=== PATIENT | female | born 1935 | race Caucasian/White ===

== ENCOUNTER 2024-03-21 20:00 | Inpatient (IN) ==
[2024-03-21 21:02] LABS: Basophils # (auto) 0.07 K/uL (0.00-0.20); Basophils % (auto) 0.6 %; Eosinophils # (auto) 0.12 K/uL (0.00-0.50); Eosinophils % (auto) 1.1 %; Hematocrit (blood only) 38.7 % (37.0-47.0); Hemoglobin 12.5 g/dl (12.0-16.0); Immature Granulocytes # (auto) 0.05 K/uL (0.01-0.20); Immature Granulocytes % (auto) 0.5 %; Lymphocytes # (auto) 0.55 K/uL (1.20-3.40); Lymphocytes % (auto) 5.1 %; Mean Corpuscular Hemoglobin 30.6 pg (25.0-34.0); Mean Corpuscular Hgb Conc 32.3 g/dL (32.0-36.0); Mean Corpuscular Volume 94.9 fL (80.0-100.0); Mean Platelet Volume 8.9 fL (9.4-12.4); Monocytes # (auto) 0.64 K/uL (0.11-0.59); Monocytes % (auto) 5.9 %; Neutrophils # (auto) 9.38 K/uL (1.40-6.50); Neutrophils % (auto) 86.8 %; Platelet Count 350 K/uL (130-400); RDW Coefficient of Variation 13.6 % (11.5-14.5); RDW Standard Deviation 47.2 fL (36.4-46.3); Red Blood Count 4.08 M/uL (4.20-5.40); White Blood Count 10.81 K/ul (4.8-10.8)
[2024-03-21 21:22] LABS: Albumin Globulin Ratio 1.2 (0.9-2); Albumin Level 4.2 gm/dl (3.4-5.0); BUN Creatinine Ratio 24.3 (10-20); Bilirubin,Total 0.3 mg/dl (0.2-1.0); Calcium 9.8 mg/dl (8.6-10.3); Creatinine Clr Calc Pharmacy 30.2 ml/min; Globulin 3.6 gm/dl (2.5-4.0); Magnesium 2.1 mg/dl (1.7-2.4); Potassium 4.2 mmol/L (3.5-5.1); Total Protein 7.8 gm/dl (6.0-8.3)
[2024-03-21 21:29] LABS: INR 0.9 (0.9-1.1); Partial Thromboplastin Ratio 1.2; Partial Thromboplastin Time 31 Seconds (21-31); Prothrombin Time 10.3 Seconds (9.0-12.0); Troponin I High Sensitivity 9.3 pg/ml (0-14)
[2024-03-21] MEDS: OPTIRAY 320 125ml IV ONE (21:49)
[2024-03-21 22:32] LABS: Adenovirus PCR Not Detected (NotDetected); Bordetella parapertussis PCR Not Detected (NotDetected); Bordetella pertussis PCR Not Detected (NotDetected); Chlamydia pneumoniae PCR Not Detected (NotDetected); Coronavirus 229E PCR Not Detected (NotDetected); Coronavirus CoV-2 (COVID19)PCR DETECTED (NotDetected); Coronavirus HKU1 PCR Not Detected (NotDetected); Coronavirus NL63 PCR Not Detected (NotDetected); Coronavirus OC43PCR Not Detected (NotDetected); Human Metapneumovirus PCR Not Detected (NotDetected); Influenza A PCR Not Detected (NotDetected); Influenza B PCR Not Detected (NotDetected); Mycoplasma pneumoniae PCR Not Detected (NotDetected); Parainfluenza Virus 1 PCR Not Detected (NotDetected); Parainfluenza Virus 2 PCR Not Detected (NotDetected); Parainfluenza Virus 3 PCR Not Detected (NotDetected); Parainfluenza Virus 4 PCR Not Detected (NotDetected); Respiratory Syncytial VirusPCR Not Detected (NotDetected); Rhinovirus/Enterovirus PCR Not Detected (NotDetected)
--- NOTE | 2024-03-21 22:41 | Emergency Department Note ---
Impression & Plan Altered mental status, COVID-19 ED Provider Note NAME: JAYDE GOVEA AGE: 88 SEX: Female INFORMANT: Patient, EMS, and family ED PROVIDER(S): Daniel Kelly MD CHIEF COMPLAINT: Change in mental status PLAN: Disposition: Admitted Outpatient prescription management: none Referral: None MEDICAL DECISION MAKING: Patient presented because of change mental status. There was some concerns of possible strokelike symptoms complaining of left-sided weakness. On exam she may have had a subtle right-sided facial droop. Son was present and noted that she was acting herself. A workup was done. Patient had a borderline leukocytosis. Chest x-ray revealed no clear evidence of pneumonia. Urinalysis was ordered however the patient contaminated the specimen. Her CT imaging did not reveal any acute findings. BioFire testing did reveal the presence of COVID-19. I suspect this COVID illness is likely causing some of the issues. I did explain this to the patient's family. Currently she is saturating well enough on room air. Patient became agitated about being in the hospital and I suspect a component of sundowning in conjunction with her current illness. She was quite belligerent with staff and did require some mild sedation to keep her from climbing out of bed or getting more physical with the staff members. She did refuse a catheter urinalysis specimen on multiple occasions per nursing. Further management in the hospital will be necessary as the patient is not safe to go home at this point in time. Consultation was made with Dr. Morales of the [facility] service. Patient was evaluated in the ER for further management. Care/management discussed with: manager supply Level of care consideration(s): After review of the information above and other included data, I feel the patient requires escalation of care to admission Triage Nursing notes: reviewed and agree them. Vital Signs: reviewed and remarkable for no significant abnormalities Additional History obtained from: EMS and patient's son. Chronic Medical/Social Conditions affecting care: Hypothyroidism Prior/ Outside/ External records reviewed: none Differential Diagnosis: Infection, hypoglycemia, electrolyte abnormalities, overdose, toxicologic, cardiac sources, intracerebral event, neurologic, trauma, as well as other pathologies. Diagnostics, independently interpreted by me: ECG: Twelve-lead ECG reveals a sinus rhythm with first-degree AV block at [address] elevation or depression. Cardiac Monitoring: Cardiac monitoring ordered by me: The patient was placed on continuous cardiac monitoring and observed. It revealed a normal sinus rhythm at 86 beats per minute without ectopy or evidence of dysrhythmia. Medical decision rules: none Imaging studies: Chest x-ray is negative for acute infiltrate. No acute intracranial findings on CT imaging and CT angiography of the head. CT angiography of the neck reveals stenosis of the carotid bifurcations. HPI: 88 year old Female arrives for evaluation of change in mental status. Family is present and states that the patient was normal self albeit exhibiting her normal level of dementia 48 hours ago. EMS reported that the patient had a change in mental status over the last few days, likely spanning from yesterday and then was more so this evening. There was some possible left-sided facial droop and slurred speech but that had resolved. Patient is oriented to self. She feels uncomfortable about being in the emergency department but denies any other complaints. Family thought that she did have some congestion. She was treated for pneumonia a month ago and recovered from that. Family also notes the patient usually gets around with a walker. Pt denies LOC, headache, visual changes, neck pain, chest pain, breathing difficulties, nausea, vomiting, abdominal pain, back pain, extremity pain, numbness, weakness, open wounds, active bleeding, or other complaints. PAST MEDICAL HISTORY: See Below, dementia, pneumonia PAST SURGICAL HISTORY: See Below, SOCIAL HISTORY: See Below, retired HOME MEDICATIONS: See Below ALLERGIES: See Below VITALS: See Below PHYSICAL EXAMINATION: GENERAL: Awake, alert, [id number], in no distress HENT: Normocephalic, atraumatic. Oropharynx unremarkable. EYES: Normal conjunctiva. Sclera non-icteric. NECK: Inspection normal. Non-tender. Supple. No nuchal rigidity. FROM. No masses. RESPIRATORY: Clear to auscultation. No wheezes. No rales. Normal respiratory effort. CARDIAC: Normal rate. Normal rhythm. No murmurs. No rubs. Extremities warm and well perfused. Pulses equal. No JVD. GI: Soft, non-distended. No tenderness to palpation. No rebound or guarding. No masses. RECTAL: Deferred. MUSCULOSKELETAL: Atraumatic. Chest examination reveals no tenderness. The back is symmetrical on inspection without obvious abnormality. There is no CVA tenderness to palpation. No joint edema. LOWER EXTREMITIES: Calves are equal size bilaterally and non-tender. No edema. No discoloration. NEURO: Mildly demented sensorium. No focal sensory or motor deficits noted. however the patient may have a slight right facial droop with some weakness in the nasolabial fold. No drift. Speech normal SKIN: No rash or jaundice noted. 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 Beliefs That Will Affect Care: None Current Living Situation: Longterm Other Information That Helps Us Care for You: No Feels Safe at Home: Yes Safety Concerns: Feels Safe At This Time Assistive Devices: Walker Home Meds Home Medications Medication Instructions Recorded Confirmed acetaminophen 325 mg tablet 650 mg PO Q8H 03/22/24 03/22/24 calcium 600 mg (as 1 tab PO DAILY 03/22/24 03/22/24 carbonate)-vitamin D3 10 mcg (400 unit) tablet cetirizine 10 mg tablet 10 mg PO DAILY 03/22/24 03/22/24 cholecalciferol (vitamin D3) 25 1,000 unit PO DAILY 03/22/24 03/22/24 mcg (1,000 unit) capsule furosemide 40 mg tablet 80 mg PO DAILY 03/22/24 03/22/24 levothyroxine 125 mcg tablet 125 mcg PO DAILY 03/22/24 03/22/24 levothyroxine 125 mcg tablet 187.5 mcg PO DIRECTED 03/22/24 03/22/24 sertraline 100 mg tablet 100 mg PO DAILY 03/22/24 03/22/24 Results & Data (ED) Vital Signs Vital Signs - 24 hr 03/21/24 20:18 03/21/24 20:58 03/21/24 21:05 Temperature 37.2 C Temperature Source Oral Pulse Rate 85 82 Pulse Rate [Finger] 95 H Pulse Rate from SpO2 Sensor Pulse Rhythm Regular Pulse Rhythm [Finger] Pulse Strength Normal Pulse Strength [Finger] Respiratory Rate 20 20 Respiratory Effort / Characteristics Non-Labored Spontaneous Respiratory Depth Normal Respiratory Pattern Blood Pressure 171/97 H Blood Pressure [Right Arm] 154/90 H Blood Pressure Mean 121 Blood Pressure Mean [Right Arm] 111 Blood Pressure Position [Right Arm] Pulse Oximetry 94 97 Oxygen Delivery Method Room Air Room Air Sepsis Recent Fever Within 48 Hours No Sepsis New/Unexplained Change in Mental Status N/A Sepsis Action Taken by Nursing No Action Required 03/21/24 23:06 03/22/24 00:00 03/22/24 00:57 Temperature Temperature Source Pulse Rate 81 80 Pulse Rate [Finger] Pulse Rate from SpO2 Sensor 90 Pulse Rhythm Pulse Rhythm [Finger] Pulse Strength Pulse Strength [Finger] Respiratory Rate 20 18 Respiratory Effort / Characteristics Respiratory Depth Respiratory Pattern Blood Pressure 117/64 Blood Pressure [Right Arm] Blood Pressure Mean 89 Blood Pressure Mean [Right Arm] Blood Pressure Position [Right Arm] Pulse Oximetry 96 95 Oxygen Delivery Method Room Air Sepsis Recent Fever Within 48 Hours Sepsis New/Unexplained Change in Mental Status Sepsis Action Taken by Nursing 03/22/24 01:03 03/22/24 01:05 Temperature Temperature Source Pulse Rate Pulse Rate [Finger] 86 Pulse Rate from SpO2 Sensor 88 Pulse Rhythm Pulse Rhythm [Finger] Regular Pulse Strength Pulse Strength [Finger] Normal Respiratory Rate 18 Respiratory Effort / Characteristics Non-Labored Respiratory Depth Normal Respiratory Pattern Regular Blood Pressure Blood Pressure [Right Arm] 118/74 Blood Pressure Mean Blood Pressure Mean [Right Arm] 88 Blood Pressure Position [Right Arm] Lying Pulse Oximetry 94 93 Oxygen Delivery Method Room Air Sepsis Recent Fever Within 48 Hours Sepsis New/Unexplained Change in Mental Status Sepsis Action Taken by Nursing Laboratory Data 03/21/24 20:45 03/21/24 20:45 Lab Results 03/21/24 03/21/24 Range/Units 20:45 21:35 WBC 10.81 H (4.8-10.8) K/ul RBC 4.08 L (4.20-5.40) M/uL Hgb 12.5 (12.0-16.0) g/dl Hct 38.7 (37.0-47.0) % MCV 94.9 (80.0-100.0) fL MCH 30.6 (25.0-34.0) pg MCHC 32.3 (32.0-36.0) g/dL RDW Std Deviation 47.2 H (36.4-46.3) fL RDW Coeff of [place] 13.6 (11.5-14.5) % Plt Count 350 (130-400) K/uL MPV 8.9 L (9.4-12.4) fL Immature Gran % (Auto) 0.5 % Neut % (Auto) 86.8 % Lymph % (Auto) 5.1 % Addison % (Auto) 5.9 % Eos % (Auto) 1.1 % Baso % (Auto) 0.6 % Neut # (Auto) 9.38 H (1.40-6.50) K/uL Lymph # (Auto) 0.55 L (1.20-3.40) K/uL Addison # (Auto) 0.64 H (0.11-0.59) K/uL Eos # (Auto) 0.12 (0.00-0.50) K/uL Baso # (Auto) 0.07 (0.00-0.20) K/uL Immature Gran # (Auto) 0.05 (0.01-0.20) K/uL PT 10.3 (9.0-12.0) Seconds INR 0.9 (0.9-1.1) APTT 31 (21-31) Seconds PTT Ratio 1.2 Sodium 137 (136-145) mmol/L Potassium 4.2 (3.5-5.1) mmol/L Chloride 98 (98-107) mmol/L Carbon Dioxide 30 (21-32) mmol/L Anion Gap 9 (3-11) BUN 27 H (6-23) mg/dl Creatinine 1.11 (0.6-1.2) mg/dl Est Cr Clr Drug Dosing 30.2 ml/min eGFR 47.51 BUN/Creatinine Ratio 24.3 H (10-20) Glucose 134 H (70-99(Fasting)) mg/dl Calcium 9.8 (8.6-10.3) mg/dl Magnesium 2.1 (1.7-2.4) mg/dl Total Bilirubin 0.3 (0.2-1.0) mg/dl AST 16 (13-39) U/L ALT 7 (7-52) U/L Alkaline Phosphatase 112 H (34-104) U/L Troponin I High Sens 9.3 (0-14) pg/ml C-Reactive Protein 3.10 H (0-0.5) mg/dl Total Protein 7.8 (6.0-8.3) gm/dl Albumin 4.2 (3.4-5.0) gm/dl Globulin 3.6 (2.5-4.0) gm/dl Albumin/Globulin Ratio 1.2 (0.9-2) Adenovirus (PCR) Not Detected (NotDetected) B. pertussis DNA (PCR) Not Detected (NotDetected) B.parapertussis DNA PCR Not Detected (NotDetected) C. pneumoniae DNA (PCR) Not Detected (NotDetected) Coronavirus OC43 (PCR) Not Detected (NotDetected) Coronavirus HKU1 (PCR) Not Detected (NotDetected) Coronavirus 229E (PCR) Not Detected (NotDetected) SARS-CoV-2 (PCR) DETECTED A (NotDetected) Coronavirus NL63 (PCR) Not Detected (NotDetected) Human Metapneumovir PCR Not Detected (NotDetected) Influenza Type A (PCR) Not Detected (NotDetected) Influenza Type B (PCR) Not Detected (NotDetected) M. pneumoniae (PCR) Not Detected (NotDetected) Parainfluenza 1 (PCR) Not Detected (NotDetected) Parainfluenza 2 (PCR) Not Detected (NotDetected) Parainfluenza 3 (PCR) Not Detected (NotDetected) Parainfluenza 4 (PCR) Not Detected (NotDetected) RSV (PCR) Not Detected (NotDetected) Entero/Rhino (PCR) Not Detected (NotDetected) Administered Medications Discontinued Medications Haloperidol Lactate (Haloperidol Lactate 5 Mg/Ml 1 Ml Vial) 2 mg IV NOW STA Stop: 03/22/24 00:32 Last Admin: 03/22/24 00:34 Dose: 2 mg Documented By: ELO Ioversol (Optiray 320 125ml) 119 ml IV ONCE ONE Stop: 03/21/24 21:49 Last Admin: 03/21/24 21:49 Dose: 119 ml Documented By: DENEEN Imaging Data Radiologist's Impression: Chest X-Ray 03/21/24 20:48 Exam(s): XR CXR 1 VIEW EXAM: XR Chest, 1 View CLINICAL HISTORY: Reason for exam: neuro deficit, acute stroke suspected. TECHNIQUE: Frontal view of the chest. COMPARISON: No relevant prior studies available. FINDINGS: Lungs: There is mild linear subsegmental atelectasis noted in the right lung base. Lungs are otherwise clear. No segmental or lobar consolidation. No pleural fluid or pneumothorax. Pleural space: See above. Heart: Unremarkable. No cardiomegaly. Mediastinum: Unremarkable. Normal mediastinal contour. Bones/joints: There is advanced bilateral shoulder degenerative joint disease with remodeling of the bilateral humeral heads. No acute fracture noted. Vasculature: There mild aortic arch calcifications. IMPRESSION: There is mild linear subsegmental atelectasis noted in the right lung base. Lungs are otherwise clear. Electronically signed by: Koko Nava MD 03/21/24 22:42 PM Head CTA 03/21/24 21:42 Exam(s): CTA HEAD W/WO Contrast IV Amt: 119 ml optiray 320 EXAM: CT Angiography Head Without and With Intravenous Contrast CLINICAL HISTORY: Reason for exam: right facial droop. TECHNIQUE: Axial computed tomographic angiography images of the head without and with intravenous contrast. CTDI is 68.27 mGy and DLP is 953.83 mGy-cm. Automated exposure control was utilized for the study. A dose lowering technique was utilized adhering to the principles of ALARA. MIP reconstructed images were created and reviewed. CONTRAST: Patient received 119 ml optiray 320 of IV contrast COMPARISON: No relevant prior studies available. FINDINGS: VASCULATURE: Right internal carotid artery: No acute findings. Intracranial segment is patent with no significant stenosis. No aneurysm. Right anterior cerebral artery: Unremarkable. No occlusion or significant stenosis. No aneurysm. Right middle cerebral artery: Unremarkable. No occlusion or significant stenosis. No aneurysm. Right posterior cerebral artery: Unremarkable. No occlusion or significant stenosis. No aneurysm. Right vertebral artery: Unremarkable as visualized. Left internal carotid artery: No acute findings. Intracranial segment is patent with no significant stenosis. No aneurysm. Left anterior cerebral artery: Unremarkable. No occlusion or significant stenosis. No aneurysm. Left middle cerebral artery: Unremarkable. No occlusion or significant stenosis. No aneurysm. Left posterior cerebral artery: Unremarkable. No occlusion or significant stenosis. No aneurysm. Left vertebral artery: Left vertebral artery is dominant. Basilar artery: Unremarkable. No occlusion or significant stenosis. No aneurysm. Other vasculature: Unremarkable as visualized. No hemodynamically significant arterial stenosis, arterial occlusion, cerebral aneurysm or dissection. HEAD: Brain: There is moderate chronic cerebral small vessel disease. No hemorrhage. Ventricles: Unremarkable. No ventriculomegaly. Bones/joints: No acute fracture. Soft tissues: Unremarkable. Sinuses: There is moderate bilateral ethmoid sinus opacification. There is minimal mucosal thickening noted in the partially visualized left maxillary sinus. The visualized mastoid air cells are clear. Mastoid air cells: See above. Other findings: There is mild to moderate generalized atrophy. IMPRESSION: 1. No hemodynamically significant arterial stenosis, arterial occlusion, cerebral aneurysm or dissection. 2. There is moderate chronic cerebral small vessel disease. 3. There is mild to moderate generalized atrophy. Electronically signed by: Koko Nava MD 03/21/24 22:52 PM Neck CTA 03/21/24 21:42 Exam(s): CTA NECK With Contrast IV Amt: 119 ml optiray 320 EXAM: CT Angiography Neck With Intravenous Contrast CLINICAL HISTORY: Reason for exam: right facial droop. TECHNIQUE: Routine carotid CT angiography protocol was performed with intravenous contrast. NASCET criteria using the distal ICAs for comparison were used for evaluation of stenoses. CTDI is 68.27 mGy and DLP is 953.83 mGy-cm. Automated exposure control was utilized for the study. A dose lowering technique was utilized adhering to the principles of ALARA. MIP reconstructed images were created and reviewed. CONTRAST: Patient received 119 ml optiray 320 of IV contrast COMPARISON: None. FINDINGS: Artifacts: There is moderate motion artifact which significantly degrades image quality. VASCULATURE: Right common carotid artery: Unremarkable. No occlusion or significant stenosis. No dissection. Right internal carotid artery: There is plaque noted at the bilateral carotid bifurcations and proximal internal carotid arteries. Accurate luminal diameter characterization is limited secondary to moderate motion artifact particularly at the level of the carotid bifurcations. Repeat imaging and follow-up carotid Doppler evaluation should be considered. Extracranial segment is patent with no occlusion or significant stenosis. No dissection. Right external carotid artery: Unremarkable. No occlusion. Right vertebral artery: Unremarkable. No occlusion or significant stenosis. No dissection. Left common carotid artery: Unremarkable. No occlusion or significant stenosis. No dissection. Left internal carotid artery: See above. Left external carotid artery: Unremarkable. No occlusion. Left vertebral artery: Unremarkable. No occlusion or significant stenosis. No dissection. Aorta: There are moderate aortic arch atherosclerotic calcifications. The common carotid and subclavian arteries are patent. Evaluation of the proximal left common carotid artery is limited secondary to motion artifact. There is moderate to severe tortuosity of the common carotid and internal carotid arteries. NECK: Bones/joints: There is advanced multilevel cervical degenerative disc disease throughout the cervical spine. No fracture or osseous destruction identified. Soft tissues: Unremarkable. Lung apices: Clear. CAROTID STENOSIS REFERENCE USING NASCET CRITERIA: % ICA stenosis = (1 - narrowest ICA diameter/diameter of distal cervical ICA) x 100. Mild - <50% stenosis. Moderate - 50-69% stenosis. Severe - 70-94% stenosis. Near occlusion - 95-99% stenosis. Occluded - 100% stenosis. IMPRESSION: There is plaque noted at the bilateral carotid bifurcations and proximal internal carotid arteries. Accurate luminal diameter characterization is limited secondary to moderate motion artifact particularly at the level of the carotid bifurcations. Repeat imaging and follow-up carotid Doppler evaluation should be considered. Electronically signed by: Koko Nava MD 03/21/24 23:02 PM Discharge Plan Visit Data Chief Complaint: Confusion Stated Complaint: CONFUSION, SLURRED SPEECH EARLIER- BETTER NOW ED Provider: Daniel Kelly Discharge Problem: Altered mental status, COVID-19 Patient Disposition: Admitted As Inpatient Discharge Instructions Interventions: ED Discharge Assessment Last Done: 03/22/24 02:11
--- NOTE | 2024-03-21 22:44 | XRay Report ---
Exam(s): XR CXR 1 VIEW EXAM: XR Chest, 1 View CLINICAL HISTORY: Reason for exam: neuro deficit, acute stroke suspected. TECHNIQUE: Frontal view of the chest. COMPARISON: No relevant prior studies available. FINDINGS: Lungs: There is mild linear subsegmental atelectasis noted in the right lung base. Lungs are otherwise clear. No segmental or lobar consolidation. No pleural fluid or pneumothorax. Pleural space: See above. Heart: Unremarkable. No cardiomegaly. Mediastinum: Unremarkable. Normal mediastinal contour. Bones/joints: There is advanced bilateral shoulder degenerative joint disease with remodeling of the bilateral humeral heads. No acute fracture noted. Vasculature: There mild aortic arch calcifications. IMPRESSION: There is mild linear subsegmental atelectasis noted in the right lung base. Lungs are otherwise clear. Electronically signed by: Koko Nava MD 03/21/24 22:42 PM
--- NOTE | 2024-03-21 22:53 | CT Scan Report ---
Exam(s): CTA HEAD W/WO Contrast IV Amt: 119 ml optiray 320 EXAM: CT Angiography Head Without and With Intravenous Contrast CLINICAL HISTORY: Reason for exam: right facial droop. TECHNIQUE: Axial computed tomographic angiography images of the head without and with intravenous contrast. CTDI is 68.27 mGy and DLP is 953.83 mGy-cm. Automated exposure control was utilized for the study. A dose lowering technique was utilized adhering to the principles of ALARA. MIP reconstructed images were created and reviewed. CONTRAST: Patient received 119 ml optiray 320 of IV contrast COMPARISON: No relevant prior studies available. FINDINGS: VASCULATURE: Right internal carotid artery: No acute findings. Intracranial segment is patent with no significant stenosis. No aneurysm. Right anterior cerebral artery: Unremarkable. No occlusion or significant stenosis. No aneurysm. Right middle cerebral artery: Unremarkable. No occlusion or significant stenosis. No aneurysm. Right posterior cerebral artery: Unremarkable. No occlusion or significant stenosis. No aneurysm. Right vertebral artery: Unremarkable as visualized. Left internal carotid artery: No acute findings. Intracranial segment is patent with no significant stenosis. No aneurysm. Left anterior cerebral artery: Unremarkable. No occlusion or significant stenosis. No aneurysm. Left middle cerebral artery: Unremarkable. No occlusion or significant stenosis. No aneurysm. Left posterior cerebral artery: Unremarkable. No occlusion or significant stenosis. No aneurysm. Left vertebral artery: Left vertebral artery is dominant. Basilar artery: Unremarkable. No occlusion or significant stenosis. No aneurysm. Other vasculature: Unremarkable as visualized. No hemodynamically significant arterial stenosis, arterial occlusion, cerebral aneurysm or dissection. HEAD: Brain: There is moderate chronic cerebral small vessel disease. No hemorrhage. Ventricles: Unremarkable. No ventriculomegaly. Bones/joints: No acute fracture. Soft tissues: Unremarkable. Sinuses: There is moderate bilateral ethmoid sinus opacification. There is minimal mucosal thickening noted in the partially visualized left maxillary sinus. The visualized mastoid air cells are clear. Mastoid air cells: See above. Other findings: There is mild to moderate generalized atrophy. IMPRESSION: 1. No hemodynamically significant arterial stenosis, arterial occlusion, cerebral aneurysm or dissection. 2. There is moderate chronic cerebral small vessel disease. 3. There is mild to moderate generalized atrophy. Electronically signed by: Koko Nava MD 03/21/24 22:52 PM
--- NOTE | 2024-03-21 23:02 | CT Scan Report ---
Exam(s): CTA NECK With Contrast IV Amt: 119 ml optiray 320 EXAM: CT Angiography Neck With Intravenous Contrast CLINICAL HISTORY: Reason for exam: right facial droop. TECHNIQUE: Routine carotid CT angiography protocol was performed with intravenous contrast. NASCET criteria using the distal ICAs for comparison were used for evaluation of stenoses. CTDI is 68.27 mGy and DLP is 953.83 mGy-cm. Automated exposure control was utilized for the study. A dose lowering technique was utilized adhering to the principles of ALARA. MIP reconstructed images were created and reviewed. CONTRAST: Patient received 119 ml optiray 320 of IV contrast COMPARISON: None. FINDINGS: Artifacts: There is moderate motion artifact which significantly degrades image quality. VASCULATURE: Right common carotid artery: Unremarkable. No occlusion or significant stenosis. No dissection. Right internal carotid artery: There is plaque noted at the bilateral carotid bifurcations and proximal internal carotid arteries. Accurate luminal diameter characterization is limited secondary to moderate motion artifact particularly at the level of the carotid bifurcations. Repeat imaging and follow-up carotid Doppler evaluation should be considered. Extracranial segment is patent with no occlusion or significant stenosis. No dissection. Right external carotid artery: Unremarkable. No occlusion. Right vertebral artery: Unremarkable. No occlusion or significant stenosis. No dissection. Left common carotid artery: Unremarkable. No occlusion or significant stenosis. No dissection. Left internal carotid artery: See above. Left external carotid artery: Unremarkable. No occlusion. Left vertebral artery: Unremarkable. No occlusion or significant stenosis. No dissection. Aorta: There are moderate aortic arch atherosclerotic calcifications. The common carotid and subclavian arteries are patent. Evaluation of the proximal left common carotid artery is limited secondary to motion artifact. There is moderate to severe tortuosity of the common carotid and internal carotid arteries. NECK: Bones/joints: There is advanced multilevel cervical degenerative disc disease throughout the cervical spine. No fracture or osseous destruction identified. Soft tissues: Unremarkable. Lung apices: Clear. CAROTID STENOSIS REFERENCE USING NASCET CRITERIA: % ICA stenosis = (1 - narrowest ICA diameter/diameter of distal cervical ICA) x 100. Mild - <50% stenosis. Moderate - 50-69% stenosis. Severe - 70-94% stenosis. Near occlusion - 95-99% stenosis. Occluded - 100% stenosis. IMPRESSION: There is plaque noted at the bilateral carotid bifurcations and proximal internal carotid arteries. Accurate luminal diameter characterization is limited secondary to moderate motion artifact particularly at the level of the carotid bifurcations. Repeat imaging and follow-up carotid Doppler evaluation should be considered. Electronically signed by: Koko Nava MD 03/21/24 23:02 PM
[2024-03-22] MEDS: HALOPERIDOL LACTATE 5 MG/ML 1 ML VIAL IV STA (00:34)
--- NOTE | 2024-03-22 01:03 | History & Physical Report ---
Date of Service March 22, 2024 History of Present Illness Chief Complaint: Altered mental status Primary Care Provider: Isrrael Mercado MD Past Med/Surg History Problem List Altered mental status (Acute) Social History Smoking Status: Former smoker Preferred Language: Liberian Feels Safe at Home: Yes Review of Systems Review of Systems: All systems reviewed & are unremarkable except as noted in Subjective Results & Data Results & Data Vital Signs (Past 12 Hours) Vital Signs Temp Pulse Pulse Resp BP BP Pulse Ox 03/22/24 00:00 80 18 117/64 96 03/21/24 23:06 81 20 03/21/24 21:05 95 H 20 154/90 H 97 03/21/24 20:58 37.2 C 82 20 171/97 H 94 03/21/24 20:18 85 O2 Del Method 03/22/24 00:00 Room Air 03/21/24 23:06 03/21/24 21:05 Room Air 03/21/24 20:58 Room Air 03/21/24 20:18 Laboratory Results 03/21/24 03/21/24 21:35 20:45 WBC 10.81 H RBC 4.08 L Hgb 12.5 Hct 38.7 MCV 94.9 MCH 30.6 MCHC 32.3 RDW Std Deviation 47.2 H RDW Coeff of [place] 13.6 Plt Count 350 MPV 8.9 L Immature Gran % (Auto) 0.5 Neut % (Auto) 86.8 Lymph % (Auto) 5.1 [place] % (Auto) 5.9 Eos % (Auto) 1.1 Baso % (Auto) 0.6 Neut # (Auto) 9.38 H Lymph # (Auto) 0.55 L [place] # (Auto) 0.64 H Eos # (Auto) 0.12 Baso # (Auto) 0.07 Immature Gran # (Auto) 0.05 PT 10.3 INR 0.9 APTT 31 PTT Ratio 1.2 Sodium 137 Potassium 4.2 Chloride 98 Carbon Dioxide 30 Anion Gap 9 BUN 27 H Creatinine 1.11 Est Cr Clr Drug Dosing 30.2 eGFR 47.51 BUN/Creatinine Ratio 24.3 H Glucose 134 H Calcium 9.8 Magnesium 2.1 Total Bilirubin 0.3 AST 16 ALT 7 Alkaline Phosphatase 112 H Troponin I High Sens 9.3 Total Protein 7.8 Albumin 4.2 Globulin 3.6 Albumin/Globulin Ratio 1.2 Adenovirus (PCR) Not Detected B. pertussis DNA (PCR) Not Detected B.parapertussis DNA PCR Not Detected C. pneumoniae DNA (PCR) Not Detected Coronavirus OC43 (PCR) Not Detected Coronavirus HKU1 (PCR) Not Detected Coronavirus 229E (PCR) Not Detected SARS-CoV-2 (PCR) DETECTED A Coronavirus NL63 (PCR) Not Detected Human Metapneumovir PCR Not Detected Influenza Type A (PCR) Not Detected Influenza Type B (PCR) Not Detected M. pneumoniae (PCR) Not Detected Parainfluenza 1 (PCR) Not Detected Parainfluenza 2 (PCR) Not Detected Parainfluenza 3 (PCR) Not Detected Parainfluenza 4 (PCR) Not Detected RSV (PCR) Not Detected Entero/Rhino (PCR) Not Detected Diagnostic Findings Chest X-Ray 03/21/24 20:48 Exam(s): XR CXR 1 VIEW EXAM: XR Chest, 1 View CLINICAL HISTORY: Reason for exam: neuro deficit, acute stroke suspected. TECHNIQUE: Frontal view of the chest. COMPARISON: No relevant prior studies available. FINDINGS: Lungs: There is mild linear subsegmental atelectasis noted in the right lung base. Lungs are otherwise clear. No segmental or lobar consolidation. No pleural fluid or pneumothorax. Pleural space: See above. Heart: Unremarkable. No cardiomegaly. Mediastinum: Unremarkable. Normal mediastinal contour. Bones/joints: There is advanced bilateral shoulder degenerative joint disease with remodeling of the bilateral humeral heads. No acute fracture noted. Vasculature: There mild aortic arch calcifications. IMPRESSION: There is mild linear subsegmental atelectasis noted in the right lung base. Lungs are otherwise clear. Electronically signed by: Koko Nava MD 03/21/24 22:42 PM Head CTA 03/21/24 21:42 Exam(s): CTA HEAD W/WO Contrast IV Amt: 119 ml optiray 320 EXAM: CT Angiography Head Without and With Intravenous Contrast CLINICAL HISTORY: Reason for exam: right facial droop. TECHNIQUE: Axial computed tomographic angiography images of the head without and with intravenous contrast. CTDI is 68.27 mGy and DLP is 953.83 mGy-cm. Automated exposure control was utilized for the study. A dose lowering technique was utilized adhering to the principles of ALARA. MIP reconstructed images were created and reviewed. CONTRAST: Patient received 119 ml optiray 320 of IV contrast COMPARISON: No relevant prior studies available. FINDINGS: VASCULATURE: Right internal carotid artery: No acute findings. Intracranial segment is patent with no significant stenosis. No aneurysm. Right anterior cerebral artery: Unremarkable. No occlusion or significant stenosis. No aneurysm. Right middle cerebral artery: Unremarkable. No occlusion or significant stenosis. No aneurysm. Right posterior cerebral artery: Unremarkable. No occlusion or significant stenosis. No aneurysm. Right vertebral artery: Unremarkable as visualized. Left internal carotid artery: No acute findings. Intracranial segment is patent with no significant stenosis. No aneurysm. Left anterior cerebral artery: Unremarkable. No occlusion or significant stenosis. No aneurysm. Left middle cerebral artery: Unremarkable. No occlusion or significant stenosis. No aneurysm. Left posterior cerebral artery: Unremarkable. No occlusion or significant stenosis. No aneurysm. Left vertebral artery: Left vertebral artery is dominant. Basilar artery: Unremarkable. No occlusion or significant stenosis. No aneurysm. Other vasculature: Unremarkable as visualized. No hemodynamically significant arterial stenosis, arterial occlusion, cerebral aneurysm or dissection. HEAD: Brain: There is moderate chronic cerebral small vessel disease. No hemorrhage. Ventricles: Unremarkable. No ventriculomegaly. Bones/joints: No acute fracture. Soft tissues: Unremarkable. Sinuses: There is moderate bilateral ethmoid sinus opacification. There is minimal mucosal thickening noted in the partially visualized left maxillary sinus. The visualized mastoid air cells are clear. Mastoid air cells: See above. Other findings: There is mild to moderate generalized atrophy. IMPRESSION: 1. No hemodynamically significant arterial stenosis, arterial occlusion, cerebral aneurysm or dissection. 2. There is moderate chronic cerebral small vessel disease. 3. There is mild to moderate generalized atrophy. Electronically signed by: Koko Nava MD 03/21/24 22:52 PM Neck CTA 03/21/24 21:42 Exam(s): CTA NECK With Contrast IV Amt: 119 ml optiray 320 EXAM: CT Angiography Neck With Intravenous Contrast CLINICAL HISTORY: Reason for exam: right facial droop. TECHNIQUE: Routine carotid CT angiography protocol was performed with intravenous contrast. NASCET criteria using the distal ICAs for comparison were used for evaluation of stenoses. CTDI is 68.27 mGy and DLP is 953.83 mGy-cm. Automated exposure control was utilized for the study. A dose lowering technique was utilized adhering to the principles of ALARA. MIP reconstructed images were created and reviewed. CONTRAST: Patient received 119 ml optiray 320 of IV contrast COMPARISON: None. FINDINGS: Artifacts: There is moderate motion artifact which significantly degrades image quality. VASCULATURE: Right common carotid artery: Unremarkable. No occlusion or significant stenosis. No dissection. Right internal carotid artery: There is plaque noted at the bilateral carotid bifurcations and proximal internal carotid arteries. Accurate luminal diameter characterization is limited secondary to moderate motion artifact particularly at the level of the carotid bifurcations. Repeat imaging and follow-up carotid Doppler evaluation should be considered. Extracranial segment is patent with no occlusion or significant stenosis. No dissection. Right external carotid artery: Unremarkable. No occlusion. Right vertebral artery: Unremarkable. No occlusion or significant stenosis. No dissection. Left common carotid artery: Unremarkable. No occlusion or significant stenosis. No dissection. Left internal carotid artery: See above. Left external carotid artery: Unremarkable. No occlusion. Left vertebral artery: Unremarkable. No occlusion or significant stenosis. No dissection. Aorta: There are moderate aortic arch atherosclerotic calcifications. The common carotid and subclavian arteries are patent. Evaluation of the proximal left common carotid artery is limited secondary to motion artifact. There is moderate to severe tortuosity of the common carotid and internal carotid arteries. NECK: Bones/joints: There is advanced multilevel cervical degenerative disc disease throughout the cervical spine. No fracture or osseous destruction identified. Soft tissues: Unremarkable. Lung apices: Clear. CAROTID STENOSIS REFERENCE USING NASCET CRITERIA: % ICA stenosis = (1 - narrowest ICA diameter/diameter of distal cervical ICA) x 100. Mild - <50% stenosis. Moderate - 50-69% stenosis. Severe - 70-94% stenosis. Near occlusion - 95-99% stenosis. Occluded - 100% stenosis. IMPRESSION: There is plaque noted at the bilateral carotid bifurcations and proximal internal carotid arteries. Accurate luminal diameter characterization is limited secondary to moderate motion artifact particularly at the level of the carotid bifurcations. Repeat imaging and follow-up carotid Doppler evaluation should be considered. Electronically signed by: Koko Nava MD 03/21/24 23:02 PM PG Care Time/CCT Total # of Minutes Spent Total Time Spent with Patient: Total time spent is greater than 50% in coordination of care (as documented) at patient's floor/unit and/or counseling patient: Coding
--- NOTE | 2024-03-22 01:18 | History & Physical Report ---
Date of Service March 22, 2024 Assessment & Plan (1) COVID-19: Plan: 88yo female presenting from shelter with report of increased confusion, some concern for left facial droop noted by family. Found to be POSITIVE for Covid-19 infection. Patient has been uncooperative with questioning and exam at present. -Admit to medical -Maintain isolation precautions -Adequate oxygenation on room air - no indication for treatment with steroids, O2 or anti-virals at present (2) Altered mental status: Plan: Likely secondary to Covid-19 infection -Frequent orientation -Check TSH, Ammonia -Awaiting UA results Plan Hypothyroidism -Check TSH -Continue Synthroid Depression -Continue Sertraline History of Present Illness Chief Complaint: confusion, possible facial droop Primary Care Provider: Isrrael Mercado MD Jacqueline Salguero is an 88yo female with history of hypothyroidism and depression presenting from [facility] with report of worsening confusion, possible facial droop. Patient unable to provide history. Family is not present at bedside at present. History obtained through discussion with ER staff. No additional complaints. Patient was aggressive in the ER requiring dose of Haldol. Found to be POSITIVE for Covid 19 ER Course: Haldol 2mg IV Home Medications Medication Instructions Recorded Confirmed Type acetaminophen 325 mg tablet 650 mg PO Q8H 03/22/24 03/22/24 History calcium 600 mg (as 1 tab PO DAILY 03/22/24 03/22/24 History carbonate)-vitamin D3 10 mcg (400 unit) tablet cetirizine 10 mg tablet 10 mg PO DAILY 03/22/24 03/22/24 History cholecalciferol (vitamin D3) 25 1,000 unit PO DAILY 03/22/24 03/22/24 History mcg (1,000 unit) capsule furosemide 40 mg tablet 80 mg PO DAILY 03/22/24 03/22/24 History levothyroxine 125 mcg tablet 125 mcg PO DAILY 03/22/24 03/22/24 History levothyroxine 125 mcg tablet 187.5 mcg PO DIRECTED 03/22/24 03/22/24 History sertraline 100 mg tablet 100 mg PO DAILY 03/22/24 03/22/24 History Past Med/Surg History Problem List COVID-19 (Acute) Altered mental status (Acute) Social History Smoking Status: Unknown if ever smoked Preferred Language: Uzbek Communication Ability: Effective Radio Tester Required: No Beliefs That Will Affect Care: None Current Living Situation: Group Home Other Information That Helps Us Care for You: No Feels Safe at Home: Yes Safety Concerns: Feels Safe At This Time Assistive Devices: Walker Review of Systems Review of Systems: Unobtainable due to cognitive status Physical Exam Physical Exam: General - patient not answering any questions HEENT - MMM, Neck supple Patient refuses further exam, does not wish to be touched, examined or questioned Nurse reports full strength 5/5 in UE/LE bilaterally. Patient was able to ambulate to the bathroom with minimal assistance Results & Data Results & Data Vital Signs (Past 12 Hours) Vital Signs Temp Pulse Pulse Resp BP BP Pulse Ox 03/22/24 01:03 86 18 118/74 94 03/22/24 00:00 80 18 117/64 96 03/21/24 23:06 81 20 03/21/24 21:05 95 H 20 154/90 H 97 03/21/24 20:58 37.2 C 82 20 171/97 H 94 03/21/24 20:18 85 O2 Del Method 03/22/24 01:03 Room Air 03/22/24 00:00 Room Air 03/21/24 23:06 03/21/24 21:05 Room Air 03/21/24 20:58 Room Air 03/21/24 20:18 Laboratory Results Laboratory Results WBC 10.81 K/ul (4.8-10.8) H 03/21/24 20:45 RBC 4.08 M/uL (4.20-5.40) L 03/21/24 20:45 Hgb 12.5 g/dl (12.0-16.0) 03/21/24 20:45 Hct 38.7 % (37.0-47.0) 03/21/24 20:45 MCV 94.9 fL (80.0-100.0) 03/21/24 20:45 MCH 30.6 pg (25.0-34.0) 03/21/24 20:45 MCHC 32.3 g/dL (32.0-36.0) 03/21/24 20:45 RDW Std Deviation 47.2 fL (36.4-46.3) H 03/21/24 20:45 RDW Coeff of [place] 13.6 % (11.5-14.5) 03/21/24 20:45 Plt Count 350 K/uL (130-400) 03/21/24 20:45 MPV 8.9 fL (9.4-12.4) L 03/21/24 20:45 Immature Gran % (Auto) 0.5 % 03/21/24 20:45 Neut % (Auto) 86.8 % 03/21/24 20:45 Lymph % (Auto) 5.1 % 03/21/24 20:45 [place] % (Auto) 5.9 % 03/21/24 20:45 Eos % (Auto) 1.1 % 03/21/24 20:45 Baso % (Auto) 0.6 % 03/21/24 20:45 Neut # (Auto) 9.38 K/uL (1.40-6.50) H 03/21/24 20:45 Lymph # (Auto) 0.55 K/uL (1.20-3.40) L 03/21/24 20:45 [place] # (Auto) 0.64 K/uL (0.11-0.59) H 03/21/24 20:45 Eos # (Auto) 0.12 K/uL (0.00-0.50) 03/21/24 20:45 Baso # (Auto) 0.07 K/uL (0.00-0.20) 03/21/24 20:45 Immature Gran # (Auto) 0.05 K/uL (0.01-0.20) 03/21/24 20:45 PT 10.3 Seconds (9.0-12.0) 03/21/24 20:45 INR 0.9 (0.9-1.1) 03/21/24 20:45 APTT 31 Seconds (21-31) 03/21/24 20:45 PTT Ratio 1.2 03/21/24 20:45 Sodium 137 mmol/L (136-145) 03/21/24 20:45 Potassium 4.2 mmol/L (3.5-5.1) 03/21/24 20:45 Chloride 98 mmol/L (98-107) 03/21/24 20:45 Carbon Dioxide 30 mmol/L (21-32) 03/21/24 20:45 Anion Gap 9 (3-11) 03/21/24 20:45 BUN 27 mg/dl (6-23) H 03/21/24 20:45 Creatinine 1.11 mg/dl (0.6-1.2) 03/21/24 20:45 Est Cr Clr Drug Dosing 30.2 ml/min 03/21/24 20:45 eGFR 47.51 03/21/24 20:45 BUN/Creatinine Ratio 24.3 (10-20) H 03/21/24 20:45 Glucose 134 mg/dl (70-99(Fasting)) H 03/21/24 20:45 Calcium 9.8 mg/dl (8.6-10.3) 03/21/24 20:45 Magnesium 2.1 mg/dl (1.7-2.4) 03/21/24 20:45 Total Bilirubin 0.3 mg/dl (0.2-1.0) 03/21/24 20:45 AST 16 U/L (13-39) 03/21/24 20:45 ALT 7 U/L (7-52) 03/21/24 20:45 Alkaline Phosphatase 112 U/L (34-104) H 03/21/24 20:45 Troponin I High Sens 9.3 pg/ml (0-14) 03/21/24 20:45 C-Reactive Protein 3.10 mg/dl (0-0.5) H 03/21/24 20:45 Total Protein 7.8 gm/dl (6.0-8.3) 03/21/24 20:45 Albumin 4.2 gm/dl (3.4-5.0) 03/21/24 20:45 Globulin 3.6 gm/dl (2.5-4.0) 03/21/24 20:45 Albumin/Globulin Ratio 1.2 (0.9-2) 03/21/24 20:45 Adenovirus (PCR) Not Detected (NotDetected) 03/21/24 21:35 B. pertussis DNA (PCR) Not Detected (NotDetected) 03/21/24 21:35 B.parapertussis DNA PCR Not Detected (NotDetected) 03/21/24 21:35 C. pneumoniae DNA (PCR) Not Detected (NotDetected) 03/21/24 21:35 Coronavirus OC43 (PCR) Not Detected (NotDetected) 03/21/24 21:35 Coronavirus HKU1 (PCR) Not Detected (NotDetected) 03/21/24 21:35 Coronavirus 229E (PCR) Not Detected (NotDetected) 03/21/24 21:35 SARS-CoV-2 (PCR) DETECTED (NotDetected) A 03/21/24 21:35 Coronavirus NL63 (PCR) Not Detected (NotDetected) 03/21/24 21:35 Human Metapneumovir PCR Not Detected (NotDetected) 03/21/24 21:35 Influenza Type A (PCR) Not Detected (NotDetected) 03/21/24 21:35 Influenza Type B (PCR) Not Detected (NotDetected) 03/21/24 21:35 M. pneumoniae (PCR) Not Detected (NotDetected) 03/21/24 21:35 Parainfluenza 1 (PCR) Not Detected (NotDetected) 03/21/24 21:35 Parainfluenza 2 (PCR) Not Detected (NotDetected) 03/21/24 21:35 Parainfluenza 3 (PCR) Not Detected (NotDetected) 03/21/24 21:35 Parainfluenza 4 (PCR) Not Detected (NotDetected) 03/21/24 21:35 RSV (PCR) Not Detected (NotDetected) 03/21/24 21:35 Entero/Rhino (PCR) Not Detected (NotDetected) 03/21/24 21:35 Impressions Chest X-Ray 03/21/24 20:48 Exam(s): XR CXR 1 VIEW EXAM: XR Chest, 1 View CLINICAL HISTORY: Reason for exam: neuro deficit, acute stroke suspected. TECHNIQUE: Frontal view of the chest. COMPARISON: No relevant prior studies available. FINDINGS: Lungs: There is mild linear subsegmental atelectasis noted in the right lung base. Lungs are otherwise clear. No segmental or lobar consolidation. No pleural fluid or pneumothorax. Pleural space: See above. Heart: Unremarkable. No cardiomegaly. Mediastinum: Unremarkable. Normal mediastinal contour. Bones/joints: There is advanced bilateral shoulder degenerative joint disease with remodeling of the bilateral humeral heads. No acute fracture noted. Vasculature: There mild aortic arch calcifications. IMPRESSION: There is mild linear subsegmental atelectasis noted in the right lung base. Lungs are otherwise clear. Electronically signed by: Koko Nava MD 03/21/24 22:42 PM Head CTA 03/21/24 21:42 Exam(s): CTA HEAD W/WO Contrast IV Amt: 119 ml optiray 320 EXAM: CT Angiography Head Without and With Intravenous Contrast CLINICAL HISTORY: Reason for exam: right facial droop. TECHNIQUE: Axial computed tomographic angiography images of the head without and with intravenous contrast. CTDI is 68.27 mGy and DLP is 953.83 mGy-cm. Automated exposure control was utilized for the study. A dose lowering technique was utilized adhering to the principles of ALARA. MIP reconstructed images were created and reviewed. CONTRAST: Patient received 119 ml optiray 320 of IV contrast COMPARISON: No relevant prior studies available. FINDINGS: VASCULATURE: Right internal carotid artery: No acute findings. Intracranial segment is patent with no significant stenosis. No aneurysm. Right anterior cerebral artery: Unremarkable. No occlusion or significant stenosis. No aneurysm. Right middle cerebral artery: Unremarkable. No occlusion or significant stenosis. No aneurysm. Right posterior cerebral artery: Unremarkable. No occlusion or significant stenosis. No aneurysm. Right vertebral artery: Unremarkable as visualized. Left internal carotid artery: No acute findings. Intracranial segment is patent with no significant stenosis. No aneurysm. Left anterior cerebral artery: Unremarkable. No occlusion or significant stenosis. No aneurysm. Left middle cerebral artery: Unremarkable. No occlusion or significant stenosis. No aneurysm. Left posterior cerebral artery: Unremarkable. No occlusion or significant stenosis. No aneurysm. Left vertebral artery: Left vertebral artery is dominant. Basilar artery: Unremarkable. No occlusion or significant stenosis. No aneurysm. Other vasculature: Unremarkable as visualized. No hemodynamically significant arterial stenosis, arterial occlusion, cerebral aneurysm or dissection. HEAD: Brain: There is moderate chronic cerebral small vessel disease. No hemorrhage. Ventricles: Unremarkable. No ventriculomegaly. Bones/joints: No acute fracture. Soft tissues: Unremarkable. Sinuses: There is moderate bilateral ethmoid sinus opacification. There is minimal mucosal thickening noted in the partially visualized left maxillary sinus. The visualized mastoid air cells are clear. Mastoid air cells: See above. Other findings: There is mild to moderate generalized atrophy. IMPRESSION: 1. No hemodynamically significant arterial stenosis, arterial occlusion, cerebral aneurysm or dissection. 2. There is moderate chronic cerebral small vessel disease. 3. There is mild to moderate generalized atrophy. Electronically signed by: Koko Nava MD 03/21/24 22:52 PM Neck CTA 03/21/24 21:42 Exam(s): CTA NECK With Contrast IV Amt: 119 ml optiray 320 EXAM: CT Angiography Neck With Intravenous Contrast CLINICAL HISTORY: Reason for exam: right facial droop. TECHNIQUE: Routine carotid CT angiography protocol was performed with intravenous contrast. NASCET criteria using the distal ICAs for comparison were used for evaluation of stenoses. CTDI is 68.27 mGy and DLP is 953.83 mGy-cm. Automated exposure control was utilized for the study. A dose lowering technique was utilized adhering to the principles of ALARA. MIP reconstructed images were created and reviewed. CONTRAST: Patient received 119 ml optiray 320 of IV contrast COMPARISON: None. FINDINGS: Artifacts: There is moderate motion artifact which significantly degrades image quality. VASCULATURE: Right common carotid artery: Unremarkable. No occlusion or significant stenosis. No dissection. Right internal carotid artery: There is plaque noted at the bilateral carotid bifurcations and proximal internal carotid arteries. Accurate luminal diameter characterization is limited secondary to moderate motion artifact particularly at the level of the carotid bifurcations. Repeat imaging and follow-up carotid Doppler evaluation should be considered. Extracranial segment is patent with no occlusion or significant stenosis. No dissection. Right external carotid artery: Unremarkable. No occlusion. Right vertebral artery: Unremarkable. No occlusion or significant stenosis. No dissection. Left common carotid artery: Unremarkable. No occlusion or significant stenosis. No dissection. Left internal carotid artery: See above. Left external carotid artery: Unremarkable. No occlusion. Left vertebral artery: Unremarkable. No occlusion or significant stenosis. No dissection. Aorta: There are moderate aortic arch atherosclerotic calcifications. The common carotid and subclavian arteries are patent. Evaluation of the proximal left common carotid artery is limited secondary to motion artifact. There is moderate to severe tortuosity of the common carotid and internal carotid arteries. NECK: Bones/joints: There is advanced multilevel cervical degenerative disc disease throughout the cervical spine. No fracture or osseous destruction identified. Soft tissues: Unremarkable. Lung apices: Clear. CAROTID STENOSIS REFERENCE USING NASCET CRITERIA: % ICA stenosis = (1 - narrowest ICA diameter/diameter of distal cervical ICA) x 100. Mild - <50% stenosis. Moderate - 50-69% stenosis. Severe - 70-94% stenosis. Near occlusion - 95-99% stenosis. Occluded - 100% stenosis. IMPRESSION: There is plaque noted at the bilateral carotid bifurcations and proximal internal carotid arteries. Accurate luminal diameter characterization is limited secondary to moderate motion artifact particularly at the level of the carotid bifurcations. Repeat imaging and follow-up carotid Doppler evaluation should be considered. Electronically signed by: Koko Nava MD 03/21/24 23:02 PM ECG Additional Comments: EKG with sinus rhythm with 1st degree AV block, no ischemic changes Code Status & VTE Plan VTE Prophylaxis Plan VTE Prophylaxis will be ordered: Yes PG Care Time/CCT Total # of Minutes Spent Total Time Spent with Patient: Total time spent is greater than 50% in coordination of care (as documented) at patient's floor/unit and/or counseling patient: Coding Level of Care Code 03631 INT INP/OBS CARE 2/55MIN Diagnoses COVID-19 U07.1 Altered mental status R41.82
[2024-03-22] MEDS ORDERED: ONDANSETRON INJ 2 MG/ML 2 ML VIAL IV PRN (01:55)
[2024-03-22] MEDS ORDERED: ACETAMINOPHEN 325 MG TAB PO PRN (01:55)
[2024-03-22] MEDS ORDERED: Patient's ALLERGY Info needs ENTERED SCH (02:15)
[2024-03-22 02:22] LABS: C Reactive Protein 3.1 mg/dl (0-0.5)
[2024-03-22 02:49] VITALS: RESP 16
[2024-03-22] MEDS: LEVOTHYROXINE SODIUM 125 MCG TABLET PO SCH (05:47)
[2024-03-22] MEDS: Patient's ALLERGY Info needs ENTERED STA (06:25)
[2024-03-22 07:22] LABS: Thyroid Stimulating Hormone 5.12 uIu/ml (0.300-4.500)
[2024-03-22 07:59] LABS: T4 Free Thyroxine 0.98 ng/dl (0.61-1.60)
--- NOTE | 2024-03-22 08:57 | Electrocardiogram Report ---
Test Reason : Blood Pressure : */* mmHG Vent. Rate : 79 BPM Atrial Rate : 79 BPM P-R Int : 224 ms QRS Dur : 90 ms QT Int : 398 ms P-R-T Axes : 54 21 57 degrees QTcB Int : 456 ms Sinus rhythm with 1st degree A-V block Otherwise normal ECG No previous ECGs available Confirmed by Emmanuel Grimes ([id number]) on 03/22/2024 8:57:07 AM Referred By: [facility] Confirmed By: Emmanuel Grimes
[2024-03-22] MEDS: SERTRALINE HCL 100 MG TABLET PO SCH (09:26)
[2024-03-22] MEDS: FUROSEMIDE 80 MG TAB PO SCH (09:26)
[2024-03-22] MEDS: ENOXAPARIN INJ 40 MG/0.4 ML SYR SQ SCH (09:26)
--- NOTE | 2024-03-22 15:04 | Hospitalist Progress Note ---
Date of Service March 22, 2024 Assessment & Plan (1) COVID-19: Plan: 88yo female presenting from retirement with report of increased confusion, some concern for left facial droop. Found to be POSITIVE for Covid-19 infection. she was acutely agitated the first night in the ED, has been calm and cooperative 03/22 -Adequate oxygenation on room air - no indication for treatment with steroids, O2 or anti-virals at present -Tmax 99 and CRP was 3, continue supportive care (2) Altered mental status: Plan: acute metabolic encephalopathy secondary to Covid-19 infection - her assisted living reported increased confusion, her son reports that episodes of agitation are not uncommon for her because of her underlying dementia -Frequent orientation - TSH and ammonia level were normal - Awaiting UA results - so far urine has been mixed with stool Plan Facial asymmetry - her mouth is asymmetric at rest with left side being lower. Her smile is equal however with no evidence of facial weakness or other focal neuro deficits on exam. CTA head/neck done in ED notable for no significant arterial stenoses, chronic small vessel disease and mild-mod generalized atrophy. Brain MRI not done but stroke is unlikely so hold off for now. Will discuss with her son after he visits today whether he perceives any difference in her appearance. Hypothyroidism - continue levothyroxine, TSH was 5 with normal T4, likely adequately replaced versus mild euthyroid sick Depression -Continue Sertraline DVT prophylaxis enoxaparin subcu her son reports recent decline and increased number of ER visits occurring every other week recently, he does not think that she is able to continue in assisted living and is interested in placement, she does have increased weakness compared to baseline because of the COVID-19 - PT/OT evaluations ordered - care coordination consult I discussed her plan of care with her son Aubrey on 03/22. he also confirms that she has no known allergies that he is aware of Admission and Anticipated Discharge Date Admission Date: March 22, 2024 Subjective Jacqueline has not been agitated today, she denies any shortness of breath does have a cough and complaints that she urinates or has a BM when she coughs no dysuria, no abdominal pain, discussed with bedside RN she has not had diarrhea Physical Exam 2 Physical Exam: PHYSICAL EXAMINATION Last 24h vital signs reviewed, see documentation in flowsheet General: comfortable appearing, no distress, sitting on commode HEENT: Normocephalic, atraumatic, pupils round and equal, sclerae anicteric, no conjunctival injection, moist mucus membranes Lungs: Normal respiratory effort. Clear to auscultation bilaterally. No RRW. not coughing when I was in room Heart: Regular rate and rhythm, no murmurs. No JVD Abdomen: Soft, nontender, nondistended. Bowel sounds present. Extremities: Warm, dry, well-perfused. No extremity edema. Neuro: Alert and oriented x self, face asymmetric with corner of left mouth lower than right however has an equal smile, speech intact, tongue is midline, manager culture are equal upper and extremity upper and lower extremity strength is symmetric, moves 4 extremities well Psych: Normal affect and behavior Results & Data Results & Data Vital Signs (Past 12 Hours) Vital Signs Temp Pulse Resp BP Pulse Ox O2 Del Method 03/22/24 07:30 Room Air 03/22/24 07:13 98.1 F 72 16 123/76 94 Room Air Laboratory Results 03/21/24 20:45 03/21/24 20:45 PG Care Time/CCT Total # of Minutes Spent Total Time Spent with Patient: Total time spent is greater than 50% in coordination of care (as documented) at patient's floor/unit and/or counseling patient: Coding Level of Care Code 00644 SUB INP/OBS CARE 2/35MIN Diagnoses COVID-19 U07.1 Altered mental status R41.82
[2024-03-22 18:12] LABS: Appearance Urine Clear (Clear); Bacteria Urine Automated None Seen (None Seen); Bilirubin Urine Negative (Negative); Blood Urine Trace (Negative); Color Urine Yellow; Epithelial Cell Urine Auto 0-2 /hpf (0-2); Glucose Urine UA Negative (Negative); Ketones Urine Negative (Negative); Leukocyte Esterase Urine Negative (Negative); Nitrite Urine Negative (Negative); Protein Urine Negative (Negative); RBC Urine Automated 0-2 /hpf (0-2); Specific Gravity Urine 1.023 (1.000-1.030); Urobilinogen Urine Negative (Negative); WBC Urine Automated 0-5 /hpf (0-5); pH Urine 5.5 (4.5-7.5)
[2024-03-23] MEDS ORDERED: CHLORASEPTIC (PHENOL) 1.4% SOLN 180 ML BTL MT PRN (05:31)
[2024-03-23] MEDS ORDERED: COUGH DROP (SUGAR FREE) LOZ 24 LOZ/1 BOX BUCCAL PRN (05:31)
[2024-03-23] MEDS: LEVOTHYROXINE SODIUM 125 MCG TABLET PO SCH (05:46)
[2024-03-23 06:54] LABS: Hematocrit (blood only) 37.4 % (37.0-47.0); Hemoglobin 12.1 g/dl (12.0-16.0); Mean Corpuscular Hemoglobin 30.9 pg (25.0-34.0); Mean Corpuscular Hgb Conc 32.4 g/dL (32.0-36.0); Mean Corpuscular Volume 95.4 fL (80.0-100.0); Mean Platelet Volume 9.2 fL (9.4-12.4); Platelet Count 328 K/uL (130-400); RDW Coefficient of Variation 13.9 % (11.5-14.5); RDW Standard Deviation 48.4 fL (36.4-46.3); Red Blood Count 3.92 M/uL (4.20-5.40); White Blood Count 4.71 K/ul (4.8-10.8)
[2024-03-23 07:16] LABS: Calcium 9.1 mg/dl (8.6-10.3); Creatinine Clr Calc Pharmacy 33.5 ml/min; Potassium 3.7 mmol/L (3.5-5.1)
--- NOTE | 2024-03-23 09:28 | Hospitalist Progress Note ---
Date of Service March 23, 2024 Assessment & Plan (1) COVID-19: Plan: 88yo female presented from care home with report of increased confusion, some concern for left facial droop. Found to be POSITIVE for Covid-19 infection. -She was acutely agitated the first night in the ED, but has remained calm and cooperative throughout her admission -Adequate oxygenation on room air - no indication for treatment with steroids, O2 or anti-virals at present -Tmax 99 evening 03/22, continue supportive care -Leukopenia at 4.71, suspect secondary to viral infection. Monitor CBC in a.m. -PT/OT evals appreciated; patient from assisted living facility, but son has concerns and is interested in placement (2) Altered mental status: Plan: Acute metabolic encephalopathy secondary to Covid-19 infection - her assisted living reported increased confusion, her son reports that episodes of agitation are not uncommon for her because of her underlying dementia -Frequent orientation and delirium prevention strategies -TSH and ammonia level were normal -UA negative Plan Chronic stable problems: Facial asymmetry - her mouth is asymmetric at rest with left side being lower. Her smile is equal however with no evidence of facial weakness or other focal neuro deficits on exam. CTA head/neck done in ED notable for no significant arterial stenoses, chronic small vessel disease and mild-mod generalized atrophy. Brain MRI not done but stroke is unlikely so deferred. Hypothyroidism - continue levothyroxine, TSH was 5 with normal T4, likely adequately replaced versus mild euthyroid sick Depression - Continue Sertraline VTE PPx: Enoxaparin subcu CODE STATUS: DNR/DNI Dispo: Awaiting PT/OT evals. Son reports recent decline and increased number of ER visits occurring biweekly recently. He does not think she is able to continue in assisted living facility and is interested in placement. She does have increased weakness compared to baseline secondary to COVID-19 Updated son, Aubrey, via phone call 03/23/24 Admission and Anticipated Discharge Date Admission Date: March 22, 2024 Subjective Patient seen and evaluated at bedside. She is only oriented to self at baseline secondary to dementia. She remains pleasantly confused and cooperative with staff. Her cough has nearly resolved at this time. She has a good appetite and appropriate p.o. intake. No further urinary complaints. She has no acute complaints or concerns at this time. She is awaiting PT/OT evaluations to determine her disposition. Physical Exam Physical Exam: General: No acute distress, nondiaphoretic, frail elderly female. Cardiac: Regular rate and rhythm without murmurs gallops or rubs. No peripheral edema. Pulm: Clear to auscultation bilaterally without wheezes, rales or rhonchi. No respiratory distress. 97% on room air. Abdominal: Soft, nontender, nondistended. Bowel sounds present. Neuro: A&O x1 (self), baseline. Asymmetric mouth with left corner droop, baseline. No focal neurological deficits. Results & Data Results & Data Vital Signs (Past 12 Hours) Vital Signs Temp Pulse Resp BP Pulse Ox O2 Del Method 03/23/24 07:22 Room Air 03/23/24 07:06 98.2 F 68 16 106/70 97 Room Air 03/22/24 21:40 Room Air 03/22/24 21:40 99.0 F 64 16 125/75 94 Room Air Laboratory Results Reviewed CBC Reviewed BMP Reviewed UA PG Care Time/CCT Total # of Minutes Spent Total Time Spent with Patient: Total time spent is greater than 50% in coordination of care (as documented) at patient's floor/unit and/or counseling patient: Coding Level of Care Code 36659 SUB INP/OBS CARE 2/35MIN Diagnoses COVID-19 U07.1 Altered mental status R41.82
[2024-03-24 06:43] LABS: Hematocrit (blood only) 38.5 % (37.0-47.0); Hemoglobin 12.3 g/dl (12.0-16.0); Mean Corpuscular Hemoglobin 30.3 pg (25.0-34.0); Mean Corpuscular Hgb Conc 31.9 g/dL (32.0-36.0); Mean Corpuscular Volume 94.8 fL (80.0-100.0); Mean Platelet Volume 9.1 fL (9.4-12.4); Platelet Count 349 K/uL (130-400); RDW Coefficient of Variation 13.6 % (11.5-14.5); RDW Standard Deviation 47.8 fL (36.4-46.3); Red Blood Count 4.06 M/uL (4.20-5.40)
--- NOTE | 2024-03-24 12:41 | Hospitalist Progress Note ---
Date of Service March 24, 2024 Assessment & Plan (1) COVID-19: Plan: 88yo woman presented from [facility] with report of increased confusion, some concern for left facial droop. Found to be POSITIVE for Covid-19 infection. -She was acutely agitated the first night in the ED, but has remained calm and cooperative throughout her admission -Adequate oxygenation on room air - no indication for treatment with steroids, O2 or anti-virals at present -continue supportive care, symptoms seem resolved -Leukopenia at 4.71, secondary to viral infection. Resolved and WBC 7.4 on 03/24 (2) Altered mental status: Plan: Acute metabolic encephalopathy secondary to Covid-19 infection - her assisted living reported increased confusion, her son reports that episodes of agitation are not uncommon for her because of her underlying dementia -Frequent orientation and delirium prevention strategies -TSH and ammonia level were normal -UA negative Plan Chronic stable problems: Facial asymmetry - her mouth is asymmetric at rest with left side being lower. Her smile is equal however with no evidence of facial weakness or other focal neuro deficits on exam. CTA head/neck done in ED notable for no significant arterial stenoses, chronic small vessel disease and mild-mod generalized atrophy. Brain MRI not done but stroke is unlikely so deferred. Hypothyroidism - continue levothyroxine, TSH was 5 with normal T4, likely adequately replaced versus mild euthyroid sick Depression - Continue Sertraline VTE PPx: Enoxaparin subcu CODE STATUS: DNR/DNI Dispo: Awaiting PT/OT evals. Son reports recent decline and increased number of ER visits occurring biweekly recently. He does not think she is able to continue in assisted living facility and is interested in placement. She does have increased weakness compared to baseline secondary to COVID-19 Admission and Anticipated Discharge Date Admission Date: March 22, 2024 Subjective continues to do well, feels lonely in the iso room awaiting PT eval to help determine disposition Physical Exam Physical Exam: PHYSICAL EXAMINATION Last 24h vital signs reviewed, see documentation in flowsheet General: sitting in bed watching TV HEENT: Normocephalic, atraumatic, pupils round and equal, sclerae anicteric, no conjunctival injection, moist mucus membranes Lungs: Normal respiratory effort. Clear to auscultation bilaterally. No RRW. no coughing Heart: Regular rate and rhythm, no murmurs. No JVD Abdomen: Soft, nontender, nondistended. Bowel sounds present. Extremities: Warm, dry, well-perfused. No extremity edema. Neuro: Alert and oriented x self, [id number] Psych: Normal affect and behavior Results & Data Results & Data Vital Signs (Past 12 Hours) Vital Signs Temp Pulse Resp BP Pulse Ox O2 Del Method 03/24/24 07:09 Room Air 03/24/24 06:56 97.9 F 76 16 106/68 92 Room Air PG Care Time/CCT Total # of Minutes Spent Total Time Spent with Patient: Total time spent is greater than 50% in coordination of care (as documented) at patient's floor/unit and/or counseling patient: Coding Level of Care Code 08039 SUB INP/OBS CARE 2/35MIN Diagnoses COVID-19 U07.1 Altered mental status R41.82
[2024-03-25 07:03] VITALS: BP 119/66; PULSE 66; TEMP 97.7; O2SAT 92
--- NOTE | 2024-03-25 18:53 | Discharge Summary ---
Discharge Summary Date of Service March 25, 2024 Principal Dx & Hospital Course #1 = Principal Diagnosis (1) COVID-19: 88yo woman presented from [facility] with report of increased confusion, some concern for left facial droop. Found to be POSITIVE for Covid-19 infection. -She was acutely agitated the first night in the ED, but has remained calm and cooperative throughout her admission -Adequate oxygenation on room air - no indication for treatment with steroids, O2 or anti-virals -symptoms have resolved -Leukopenia at 4.71, secondary to viral infection. Resolved and WBC 7.4 on 03/24 (2) Altered mental status: Acute metabolic encephalopathy secondary to Covid-19 infection - her assisted living reported increased confusion, her son reports that episodes of agitation are not uncommon for her because of her underlying dementia -Frequent orientation and delirium prevention strategies -TSH and ammonia level were normal -UA negative - seems to have resolved Plan Chronic stable problems: Facial asymmetry - her mouth is asymmetric at rest with left side being lower. Her smile is equal however with no evidence of facial weakness or other focal neuro deficits on exam. CTA head/neck done in ED notable for no significant arterial stenoses, chronic small vessel disease and mild-mod generalized atrophy. Brain MRI not done but stroke is unlikely so deferred. Hypothyroidism - continue levothyroxine, TSH was 5 with normal T4, likely adequately replaced versus mild euthyroid sick Depression - Continue Sertraline Jacqueline's reports recent decline and increased number of ER visits occurring biweekly recently. He does not think she is able to continue in assisted living facility and is interested in placement. She was evaluated for discharge to senior living facility for rehab however placement was going to be quite delayed because of COVID positivity, therefore she returned back to her personal-custodial. Her son will explore higher level of care placement as an outpatient Notes For Next Care Provider Medication Changes From Visit stopped cetirizine Admission HPI Per Admitting Provider Jacqueline Salguero is an 88yo female with history of hypothyroidism and depression presenting from [facility] with report of worsening confusion, possible facial droop. Patient unable to provide history. Family is not present at bedside at present. History obtained through discussion with ER staff. No additional complaints. Patient was aggressive in the ER requiring dose of Haldol. Found to be POSITIVE for Covid 19 ER Course: Haldol 2mg IV Discharge Plan Discharge Items Patient Disposition: Personal Correction Reason For Visit: CONFUSION, COVID-19 Discharge Diagnosis: COVID-19 Activity: Resume your previous activity Weightbearing: Full weightbearing Non-emergency contact: Primary Care Provider Call non-emergency contact if: you have any medication questions, your symptoms worsen and you have a fever Follow-up/Referrals: Isrrael Mercado MD [Primary Care Provider] - Diet: Regular Addtl Attending Provider Instructions: Home health PT and OT evaluate and treat Currently no significant COVID symptoms Resume usual home medications and diet Try stopping cetirizine (at least in the winter), can contribute to mental status changes, would reduce dose to 5 mg if needs to be resumed Pending Studies at Discharge: No Stand-Alone Forms: My [employer], Smoking Cessation Skilled Items Patient informed of condition?: Yes DNR: Yes Discharge Level of Care: Other Communicable Disease: Yes Discharge Prognosis: Stable Lines: None Urinary Catheter: No Medications and DC Order Prescriptions: Continued furosemide 40 mg tablet 80 mg PO DAILY sertraline 100 mg tablet 100 mg PO DAILY levothyroxine 125 mcg tablet 125 mcg PO DAILY Rx Instructions: Take 125mcg po daily except on Thursday cholecalciferol (vitamin D3) 25 mcg (1,000 unit) capsule 1,000 unit PO DAILY calcium carbonate-vitamin D3 600 mg-10 mcg (400 unit) tablet 1 tab PO DAILY levothyroxine 125 mcg tablet 187.5 mcg PO DIRECTED Qty: 0 0RF Rx Instructions: Take 1.5 tablets PO on WEDNESDAYS Changed acetaminophen 325 mg tablet 650 mg PO Q8H PRN (Reason: fever or pain) Qty: 0 0RF Discontinued cetirizine 10 mg tablet 10 mg PO DAILY Discharge Orders: Discharge Order (Routine); Ordered 03/25/24 Ordered By: Melida Ingram Admission Data Admit Date/Time: 03/22/24 01:07 Attending Provider: Melida Ingram Admit Provider: Rica Morales Primary Care Provider: Isrrael Mercado Other Providers: Rica Morales; [facility] Other Interventions: Discharge Summary Assessment (RN) Last Done: 03/25/24 09:49 Hospital Stay Data Consultations 03/22/24 01:00 ED Decision to Admit Stat Diagnostic Imagining Performed 03/21/24 21:42 CT angio head wo/w Stat CT angio neck with con Stat Pending Results Patient Have Any Pending Studies at Discharge: No Discharge Instructions Given to Patient (Per Discharging Provider) Home health PT and OT evaluate and treat Currently no significant COVID symptoms Resume usual home medications and diet Try stopping cetirizine (at least in the winter), can contribute to mental status changes, would reduce dose to 5 mg if needs to be resumed Total Time Total Time Spent Total Time Spent (In Minutes): <30 Coding Level of Care Code 48652 IN/OBS DISCH 30 MIN/LESS Diagnoses COVID-19 U07.1 Altered mental status R41.82
== END 2024-03-25 10:42 | disposition home or self-care (01) | DRG 177 ==
LOC: ED 20:00 → SUATTDRO 03-22 01:07 → EDINP 03-22 01:07 → 3E 03-22 02:11